=== PATIENT | male | born 1995 | race Caucasian/White ===

== ENCOUNTER 2017-02-20 17:31 | Emergency (ER) | payer OTHER, SELFPAY ==
[2017-02-20] MEDS ORDERED: ROBA500T PO (19:08)
[2017-02-20] MEDS ORDERED: IBUP80TA PO (19:08)
[2017-02-20] MEDS ORDERED: METHOCARBAMOL 500 MG TAB PO ONE (19:15)
[2017-02-20] MEDS ORDERED: IBUPROFEN 800 MG TAB PO ONE (19:15)
[2017-02-20 19:28] VITALS: BP 150/77
== END 2017-02-20 19:35 | disposition home or self-care (01) ==
LOC: M ED 17:31
DX: S39.012A Strain of muscle, fascia and tendon of lower back, initial encounter (principal); V49.9XXA Car occupant (driver) (passenger) injured in unspecified traffic accident, initial encounter; Y92.9 Unspecified place or not applicable; Y93.9 Activity, unspecified; Y99.9 Unspecified external cause status